=== PATIENT | female | born 1990 | race Caucasian/White ===

== ENCOUNTER 2018-08-17 12:52 | Emergency (ER) | payer BC, OTHER, SELFPAY ==
[~2018-08-17] VITALS: Ht 165.1 cm; Wt 56.2 kg
[~2018-08-17 12:52] MED LIST: AUGMENTIN 875-1 EAC1 ORAL; IBUPROFEN600 MG ORAL; NKM; UNOBMED
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
[2018-08-17 14:47] VITALS: BP 128/74
--- NOTE | 2018-08-17 14:58 | Diagnostic Imaging Report ---
Indication: Foot Pain Comparison: None Findings: 3 views of the right foot were obtained. No acute fractures, malalignment, erosions or periostitis are identified. Soft tissues are unremarkable. Impression: No acute findings.
--- NOTE | 2018-08-17 16:30 | Diagnostic Imaging Report ---
Indications: hip pain Findings: Two views of the right hip were obtained. No acute fracture is demonstrated. Alignment of the hip is within normal limits. Soft tissues are unremarkable. Impression: Negative for acute injury.
== END 2018-08-17 14:48 | disposition home or self-care (01) ==
LOC: EMR 13:42
DX: S93.601A Unspecified sprain of right foot, initial encounter (principal); W23.0XXA Caught, crushed, jammed, or pinched between moving objects, initial encounter; Y93.55 Activity, bike riding; Y92.9 Unspecified place or not applicable; M25.551 Pain in right hip
CPT/HCPCS: 99284